=== PATIENT | female | born 1980 | race Two or more races ===

== ENCOUNTER → 2017-03-15 | Outpatient (CLI) | payer SELFPAY ==
[~2017-03-15] MED LIST: BENTYL20 MG PO; CIPRO750 MG PO; HYDROCODON-ACE1 EAC9 PO; NAPROSYN500 MG PO; NO MEDICATIONS; PHENERGAN25 MG PO
--- NOTE | ~2017-03-15 | CR63 ---
[facility] A Service of [facility] RADIOLOGY TEXT RESULTS PATIENT: CESAR PAREKH LOCATION: [facility] : 80 UNIT #: [id number] AGE: [address]: Serene Persaud SEX: F ORDER DR: [id number] [facility] [address] [place], [place] [address] [id number] O MR#: [id number] Acc #: [id number] NAME: CESAR PAREKH : 1980 SEX: F STUDY DATE/TIME: 03/15/2017 11:44 UNIT: [facility] ROOM: STUDY DESCRIPTION: CR Chest 2 View Attending Physician: Serene Jackson A.P.R.N. Referring Physician: Serene Jackson A.P.R.N. Ordering Physician: Serene Jackson A.P.R.N. Primary Care Physician: Serene Jackson A.P.R.N. MEDICAL IMAGING REPORT This report is preliminary unless electronic signature is present EXAM Chest PA and lateral 03/15/2017 HISTORY Mid sternal and posterior chest pain for 1 year off/on, worsening in the last 2 weeks. FINDINGS PA and lateral examination of the chest upright shows a good expansion of the parenchyma with a normal distribution of the pulmonary vascularity. There is no indication of congestion, effusion, infiltrate, tumor, or nodular density. The pleural reflections and diaphragmatic contours are normal. The cardiac silhouette and mediastinal anatomy is within normal limits. IMPRESSION Normal chest. Dictated by... Mario Candelario M.D. THIS IS AN ELECTRONICALLY VERIFIED REPORT Mario Candelario M.D. at 03/16/2017 8:04 AM MICHAEL/kindra TD: 03/15/2017 14:39 JOB #: [id number] MEDICAL IMAGING REPORT [facility] A Service of [facility] RADIOLOGY TEXT RESULTS PATIENT: CESAR PAREKH LOCATION: [facility] : 80 UNIT #: [id number] AGE: [address]: Serene Persaud SEX: F ORDER DR: Page 1 of 1 COPY
== END | disposition home or self-care (01) ==
LOC: CRAD 11:12
DX: R07.9 Chest pain, unspecified (principal)
CPT/HCPCS: 71020